=== PATIENT | female | born 1985 | race Caucasian/White ===

== ENCOUNTER 2017-04-11 21:31 | Emergency (ER) | payer MEDICAID ==
[~2017-04-11] VITALS: Ht 160 cm; Wt 61.1 kg
[~2017-04-11 21:31] MED LIST: ACET12.55 PO; CLIN-80 PO; HYDR-569 PO
[2017-04-11] MEDS ORDERED: HYDROcodone/acetaminophen 10/325mg tab PO ONE (22:30)
[2017-04-11] MEDS ORDERED: amox tr/potassium clavulanate 875/125mg TAB PO ONE (22:30)
[2017-04-11] MEDS ORDERED: naproxen 500mg tablet PO ONE (22:30)
[2017-04-11] MEDS ORDERED: HYDR-569 PO (22:35)
[2017-04-11] MEDS ORDERED: NAPR-56 PO (22:35)
[2017-04-11] MEDS ORDERED: AMOX-419 PO (22:35)
[2017-04-11 23:12] VITALS: BP 114/83
== END 2017-04-11 23:13 | disposition home or self-care (01) ==
LOC: ER 21:33
DX: K04.7 Periapical abscess without sinus (principal); F17.200 Nicotine dependence, unspecified, uncomplicated; F12.10 Cannabis abuse, uncomplicated; Z88.1 Allergy status to other antibiotic agents
CPT/HCPCS: 99284

== ENCOUNTER 2017-12-10 14:46 | Emergency (ER) | payer MEDICAID ==
[~2017-12-10] VITALS: Ht 162.6 cm; Wt 56.0 kg
[~2017-12-10 14:46] MED LIST changes: -CLIN-80 PO; +CLIN300C85 PO
[2017-12-10 15:08] LABS: URINE HCG NEGATIVE (NEG)
[2017-12-10 15:09] VITALS: BP 118/73
[2017-12-10 15:10] LABS: CLARITY,URINE TURBID (Clear); COLOR,URINE YELLOW (Yellow); GLUCOSE, URINE NEGATIVE (Neg); KETONES,URINE NEGATIVE (Neg); LEUKOCYTE ESTERASE ,URINE MODERATE (Neg); NITRITES, URINE POSITIVE (Neg); OCCULT BLOOD,URINE LARGE (Neg); PH,URINE 6.5 (4.8-8.0); PROTEIN,URINE >=300 mg/dl (Neg)
[2017-12-10 15:14] LABS: UA COLLECTION TYPE CLN CATCH MIDSTREAM
[2017-12-10 15:17] LABS: WBC,URINE TNTC /HPF (0-4)
[2017-12-10 15:18] LABS: BACTERIA,URINE 1+ /HPF (Neg); SQUAMOUS EPITHELIAL CELL,UR FEW /LPF (FEW)
[2017-12-10] MEDS ORDERED: nitrofuran/nitrofuran macrocrysal 100 MG capsule PO ONE (15:50)
[2017-12-10] MEDS ORDERED: NITR100C6 PO (15:52)
[2017-12-10] MEDS ORDERED: PHEN-716 PO (15:52)
== END 2017-12-10 16:01 | disposition home or self-care (01) ==
LOC: ER 14:46
DX: N39.0 Urinary tract infection, site not specified (principal); F12.90 Cannabis use, unspecified, uncomplicated; F17.200 Nicotine dependence, unspecified, uncomplicated; Z88.1 Allergy status to other antibiotic agents; Z98.51 Tubal ligation status
CPT/HCPCS: 81001; 81025; 87077; 87088; 87186; 99284

== ENCOUNTER 2018-03-24 16:21 | Emergency (ER) | payer MEDICAID ==
[~2018-03-24] VITALS: Ht 160 cm; Wt 57.4 kg
[~2018-03-24 16:21] MED LIST changes: +HYDR-4383 PO; -HYDR-569 PO; +NITR100C6 PO; +PHEN-716 PO
[2018-03-24 16:29] VITALS: BP 98/64
[2018-03-24] MEDS ORDERED: HYDR-4353 PO (16:43)
[2018-03-24] MEDS ORDERED: AMOX-422 PO (16:43)
== END 2018-03-24 16:58 | disposition home or self-care (01) ==
LOC: ER 16:21
DX: K04.7 Periapical abscess without sinus (principal); K02.9 Dental caries, unspecified; F12.90 Cannabis use, unspecified, uncomplicated; Z98.51 Tubal ligation status; Z88.1 Allergy status to other antibiotic agents; Z79.899 Other long term (current) drug therapy
CPT/HCPCS: 99283

== ENCOUNTER 2018-10-29 09:47 | Emergency (ER) | payer MEDICAID ==
[~2018-10-29] VITALS: Ht 160 cm; Wt 56.0 kg
[~2018-10-29 09:47] MED LIST changes: +CLIN-96 PO; -CLIN300C85 PO
[2018-10-29 09:59] VITALS: BP 106/71
[2018-10-29] MEDS ORDERED: mag hydrox/Alum hydrox/simeth 30ml oral suspension PO ONE (12:20)
[2018-10-29] MEDS ORDERED: pseudoephedrine 30mg tablet PO ONE (12:20)
[2018-10-29] MEDS ORDERED: LIDOcaine Viscous 15ml cup PO ONE (12:20)
== END 2018-10-29 12:30 | disposition home or self-care (01) ==
LOC: ER 09:47
DX: J06.9 Acute upper respiratory infection, unspecified (principal); R13.10 Dysphagia, unspecified; F17.200 Nicotine dependence, unspecified, uncomplicated; F12.90 Cannabis use, unspecified, uncomplicated; Z86.2 Personal history of diseases of the blood and blood-forming organs and certain disorders involving the immune mechanism; Z98.51 Tubal ligation status; Z87.442 Personal history of urinary calculi; Z88.8 Allergy status to other drugs, medicaments and biological substances; Z79.899 Other long term (current) drug therapy
CPT/HCPCS: 99281

== ENCOUNTER 2019-03-26 19:03 | Emergency (ER) | payer MEDICAID ==
[~2019-03-26] VITALS: Ht 160 cm; Wt 59.1 kg
[~2019-03-26 19:03] MED LIST changes: +CLIN-90 PO; -CLIN-96 PO
[2019-03-26 19:19] VITALS: BP 113/74
[2019-03-26] MEDS ORDERED: ibuprofen tablet 400 MG TABLET PO ONE (20:45)
== END 2019-03-26 21:40 | disposition home or self-care (01) ==
LOC: ER 19:04
DX: M79.672 Pain in left foot (principal); F12.90 Cannabis use, unspecified, uncomplicated; Z88.1 Allergy status to other antibiotic agents; Z79.82 Long term (current) use of aspirin; Z79.899 Other long term (current) drug therapy; Z87.442 Personal history of urinary calculi; Z98.51 Tubal ligation status; V03.99XA Pedestrian with other conveyance injured in collision with car, pick-up truck or van, unspecified whether traffic or nontraffic accident, initial encounter; Y93.89 Activity, other specified; Y92.89 Other specified places as the place of occurrence of the external cause; Y99.8 Other external cause status
CPT/HCPCS: 73630; 99283

== ENCOUNTER 2020-09-03 11:41 | Emergency (ER) | payer MEDICAID ==
[~2020-09-03] VITALS: Ht 160 cm; Wt 61.4 kg
[~2020-09-03 11:41] MED LIST changes: -CLIN-90 PO; +CLIN-97 PO
[2020-09-03 11:55] VITALS: BP 95/68
--- NOTE | 2020-09-03 14:26 | NUR ---
PATIENT HERE WITH C/O URINARY PAIN. WENT TO [facility] ER YESTERDAY BUT DID NOT STAY FOR EVALUATION/TREATMENT. RECORDS HAVE BEEN OBTAINED FROM [facility], AND PATIENT IS AWAITING EVALUATION FROM THIS ER PROVIDER. PATIENT CONTINUES TO C/O URINARY SYMPTOMS.
[2020-09-03 16:23] LABS: BASOPHILS % (AUTO) 0.2 % (0-1); EOSINOPHILS # (AUTO) 0.3 X10'3 (0-0.9); EOSINOPHILS % (AUTO) 3.5 % (0-6); HEMATOCRIT 32.7 % (35.0-45.0); HEMOGLOBIN 11.4 g/dl (12.0-16.0); LYMPHOCYTES # (AUTO) 0.9 X10'3 (1.1-4.8); LYMPHOCYTES % (AUTO) 12.3 % (21-51); MEAN CORPUSCULAR HEMOGLOBIN 30.4 PG (27.0-31.0); MEAN CORPUSCULAR HGB CONC 34.9 g/dL (33.0-36.5); MEAN CORPUSCULAR VOLUME 87.1 FL (78-98); MEAN PLATELET VOLUME 8.5 FL (7.4-10.4); MONOCYTES % (AUTO) 13.4 % (2-12); NEUTROPHILS # (AUTO) 5.3 X10'3 (1.8-7.7); NEUTROPHILS % (AUTO) 70.6 % (42-75); PLATELET COUNT 163 X10'3 (140-440); RED BLOOD COUNT 3.76 X10'6 (4.20-5.60); RED CELL DISTRIBUTION WIDTH 12.8 % (11.5-14.5); WHITE BLOOD COUNT 7.5 X10'3 (4.5-11.0)
[2020-09-03 16:33] LABS: CLARITY,URINE CLOUDY (Clear); COLOR,URINE YELLOW (Yellow); GLUCOSE, URINE NEGATIVE (Neg); KETONES,URINE NEGATIVE (Neg); LEUKOCYTE ESTERASE ,URINE LARGE (Neg); NITRITES, URINE NEGATIVE (Neg); OCCULT BLOOD,URINE LARGE (Neg); PROTEIN,URINE 100 mg/dl (Neg); UA COLLECTION TYPE CLN CATCH MIDSTREAM
[2020-09-03 16:44] LABS: MUCUS STRANDS FEW /LPF (Neg); SQUAMOUS EPITHELIAL CELL,UR MANY /LPF (FEW); WBC,URINE TNTC /HPF (0-4)
[2020-09-03 16:45] LABS: TRANSITIONAL EPI CELLS,URINE FEW /HPF
[2020-09-03 16:47] LABS: BACTERIA,URINE 3+ /HPF (Neg)
[2020-09-03] MEDS ORDERED: SULF1TAB49 PO (16:56)
== END 2020-09-03 17:20 | disposition home or self-care (01) ==
LOC: ER 11:42
DX: N10 Acute pyelonephritis (principal); F12.90 Cannabis use, unspecified, uncomplicated; Z86.2 Personal history of diseases of the blood and blood-forming organs and certain disorders involving the immune mechanism; Z87.442 Personal history of urinary calculi; Z98.51 Tubal ligation status; Z79.899 Other long term (current) drug therapy; Z88.8 Allergy status to other drugs, medicaments and biological substances
CPT/HCPCS: 36415; 81001; 85025; 99283

== ENCOUNTER 2022-03-26 19:16 | Emergency (ER) | payer MEDICAID ==
[~2022-03-26] VITALS: Ht 160 cm; Wt 75.0 kg
[2022-03-26 19:27] VITALS: BP 107/58
[2022-03-26] MEDS ORDERED: naproxen 500mg tablet PO ONE (19:55)
[2022-03-26] MEDS ORDERED: NAPR-56 PO (19:57)
== END 2022-03-26 20:18 | disposition home or self-care (01) ==
LOC: ER 19:17
DX: N64.4 Mastodynia (principal); F17.200 Nicotine dependence, unspecified, uncomplicated; F12.90 Cannabis use, unspecified, uncomplicated; Z98.51 Tubal ligation status; Z87.442 Personal history of urinary calculi; Z88.8 Allergy status to other drugs, medicaments and biological substances; Z79.899 Other long term (current) drug therapy
CPT/HCPCS: 99282